=== PATIENT | male | born 1965 | race African-American/Black ===

== ENCOUNTER 2023-12-08 19:59 | Emergency (ER) | payer OTHER, SELFPAY ==
[2023-12-08] MEDS ORDERED: Morphine 4 MG/ML VIAL ONE (20:47)
[2023-12-08] MEDS ORDERED: Morphine 2 MG/ML VIAL ONE (20:47)
[2023-12-08 20:57] LABS: #Eosinphils 0.1 thou/uL (0.0-0.7); #Lymphocytes 1.3 thou/uL (1.20-3.40); #Monocytes 0.8 thou/uL (0.11-0.59); #Neutrophils 3.2 thou/uL (1.40-6.50); %Basophils 0.7 % (0.0-1.0); %Eosinophils 1.5 % (0.0-10.0); %Lymphocytes 23.5 % (21.0-51.0); %Monocytes 14.8 % (0.0-10.0); %Neutrophils 59.5 % (42.0-75.0); Hemoglobin 14.5 g/dL (14.0-18.0); Mean Corpuscular HGB CONC 30.8 g/dL (32.0-36.0); Mean Corpuscular Hemoglobin 27.1 pg (27.0-31.0); Mean Corpuscular Volume 87.9 fl (78.0-98.0); Mean Platelet Volume 5.6 fL (7.4-10.4); Platelet Count 262 10x3/uL (130-400); RBC Distribution Width 14.5 % (11.5-14.5); Red Blood Cell (RBC) Count 5.35 mill/uL (4.70-6.10); White Blood Cell (WBC) Count 5.4 10x3/uL (4.8-10.8)
[2023-12-08 20:59] LABS: ALT (SGPT) 22 U/L (8-55); AST (SGOT) 22 U/L (5-34); Albumin 4.7 g/dL (3.5-5.0); Alkaline Phosphatase 86 U/L (40-110); Anion Gap 17 mmol/L (10-20); BUN (Urea Nitrogen) 18 mg/dL (8.4-25.7); Bilirubin, Total 1.2 mg/dL (0.2-1.2); Calc. Creatinine Clearance 0 mL/min (70-130); Calcium 10.1 mg/dL (7.8-10.44); Carbon Dioxide 26 mmol/L (22-29); Chloride 105 mmol/L (98-107); Estimated GFR 55; Globulin 3.6 g/dL (2.4-3.5); Glucose 126 mg/dL (70-105); Lipase 15 U/L (8-78); Potassium 3.4 mmol/L (3.5-5.1); Protein, Total 8.3 g/dL (6.0-8.3); Sodium 145 mmol/L (136-145)
== END 2023-12-08 23:05 | disposition short-term general hospital (02) ==
LOC: BURERS 19:59
DX: K56.609 Unspecified intestinal obstruction, unspecified as to partial versus complete obstruction (principal)
CPT/HCPCS: 71045; 74176; 80053; 83605; 83690; 85025; 96374; J2270; J2272